=== PATIENT | male | born 1980 | race Caucasian/White ===

== ENCOUNTER 2020-11-10 06:33 | Emergency (ER) | payer OTHER, BC, SELFPAY ==
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
[2020-11-10 06:58] VITALS: BP 132/78; PULSE 88; RESP 16; TEMP 36.6; O2SAT 97; BMI 30.9
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
== END 2020-11-10 09:08 | disposition home or self-care (01) ==
PROVIDERS: Emergency Provider Emergency Medicine; PCP Internal Medicine
DX: S92.352A Displaced fracture of fifth metatarsal bone, left foot, initial encounter for closed fracture (principal); M79.672 Pain in left foot; V23.4XXA Motorcycle driver injured in collision with car, pick-up truck or van in traffic accident, initial encounter; Y93.9 Activity, unspecified; Y92.410 Unspecified street and highway as the place of occurrence of the external cause; Y99.9 Unspecified external cause status
CPT/HCPCS: 73590; 73600; 73620; 99283

== ENCOUNTER → 2020-11-20 10:05 | Outpatient (BNVA) | payer OTHER, BC, SELFPAY | PROVIDERS: PCP Internal Medicine; Visit Provider Orthopaedic Surgery ==

== ENCOUNTER 2020-12-24 08:20 | Outpatient (REF) | payer OTHER, BC, SELFPAY ==
--- NOTE | ~2020-12-24 | XR_ITS ---
EXAMINATION: XR FOOT, LEFT CLINICAL INFORMATION: Left foot pain COMPARISON: 11/10/2020 TECHNIQUE: AP, lateral, and oblique views of the left foot. FINDINGS: Incomplete healing of the slightly angulated fracture of the distal 5th metatarsal. There is some callus formation noted. Otherwise no significant change. XR/XR foot LT min 3V IMPRESSION: Incomplete healing of the slightly angulated fracture of the distal 5th metatarsal. There is some callus formation noted. Otherwise no significant change.
== END 2020-12-24 08:21 | disposition home or self-care (01) ==
LOC: HO.HOSX 08:20
PROVIDERS: Visit Provider Orthopaedic Surgery
DX: S92.352A Displaced fracture of fifth metatarsal bone, left foot, initial encounter for closed fracture (principal)
CPT/HCPCS: 73630

== ENCOUNTER 2021-01-14 08:10 | Outpatient (REF) | payer BC, SELFPAY ==
--- NOTE | ~2021-01-14 | XR_ITS ---
EXAMINATION: XR FOOT, LEFT CLINICAL INFORMATION: Left foot pain COMPARISON: December 24, 2020 TECHNIQUE: AP, lateral, and oblique views of the left foot. FINDINGS: There is a healing fracture without change in alignment of the distal left fifth metatarsal. There is some periosteal new bone formation. Fracture line is still seen but is less evident. No significant soft tissue swelling is appreciated. No destructive bony lesions. Joint spaces maintained. XR/XR foot LT min 3V IMPRESSION: Healing fracture of the left fifth distal metatarsal with what appears to be some degree of bony union.
== END 2021-01-14 08:11 | disposition home or self-care (01) ==
LOC: HO.HOSX 08:10
PROVIDERS: Visit Provider Orthopaedic Surgery
DX: S92.352D Displaced fracture of fifth metatarsal bone, left foot, subsequent encounter for fracture with routine healing (principal); X58.XXXD Exposure to other specified factors, subsequent encounter
CPT/HCPCS: 73630

== ENCOUNTER 2025-01-03 23:08 | Emergency (ER) | payer OTHER, SELFPAY ==
[2025-01-03 23:13] VITALS: BP 121/86; PULSE 89; RESP 20; TEMP 36.1; O2SAT 98; BMI 25.8
[2025-01-03 23:22] LABS: Glucose, Whole Blood 489 mg/dL (60-115)
[2025-01-03 23:48] LABS: Hematocrit 41.9 % (42.0-52.0); Hemoglobin 14.5 g/dl (14.0-18.0); Imm Gran Abs Auto 0.04 X10*3/uL (0.00-0.03); Imm Gran Pct Auto 0.4 % (0.0-0.4); Lymphocytes Absolute Auto 3.3 X10*3/uL (1.2-4.9); MANUAL DIFF FLAG NO; Mean Corpuscular HGB Conc 34.6 g/dl (31.0-36.0); Mean Corpuscular Hemoglobin 29.4 pg (27.0-33.0); Mean Corpuscular Volume 84.8 fL (80.0-98.0); NRBC Abs Auto 0.000 X10*3/uL (0.0-0.012); NRBC Pct Auto 0.0 /100WBC (0.0-0.2); Platelet Count 199 X10*3/uL (160-400); Red Blood Count 4.94 X10*6/uL (4.60-5.80); White Blood Count 10.3 X10*3/uL (4.8-10.8)
--- NOTE | 2025-01-03 23:52 | ED_ITS ---
HPI - General Adult General Chief complaint: General Medical Stated complaint: Feels tired, dry mouth Time Seen by Provider: 01/03/25 23:51 History of Present Illness HPI narrative: Patient is a 44-year-old male has been losing weight. Having dry mouth. Constant thirst. Drinking lots of fluid in the last month. Today use a neighbor's glucometer and it read as high. Patient decided to come to the ED. there is no chest pain there is no shortness of breath there is no diaphoresis Related Data Home Medications ?Medication ?Instructions ?Recorded ?Confirmed No Known Home Meds 11/20/20 11/20/20 Allergies Allergy/AdvReac Type Severity Reaction Status Date / Time No Known Allergies Allergy Verified 01/03/25 23:14 Review of Systems 2 Review of Systems: Positive increased thirst Positive increased urination Yes all other systems are reviewed and are negative [facility] [place] Past Medical History Attestation statement: The following information was validated with the patient. Medical History No known health problems Social History Social History Advance Directives: No Advance Directives Information Provided: Yes Current occupational status: employed Current occupation: [employer] Physical Exam ED Vital Signs: Vital Signs - 24 hr 01/03/25 23:13 Temperature 96.9 F Pulse Rate 89 Respiratory Rate 20 Blood Pressure 121/86 Pulse Oximetry 98 Oxygen Delivery Method Room Air BMI result Body Mass Index 25.8 Appearance: Alert. Oriented X3. No acute distress. Eyes: Pupils equal, round and reactive to light. ENT: Pharynx normal. Neck: Normal inspection. Neck supple. No lymph nodes noted. No crepitus CVS: Normal heart rate and rhythm. Pulses normal. Normal S1 and S2 Respiratory: No respiratory distress. Breath sounds normal. No Wheezing. No rales Abdomen: Soft and nontender. No rigidity. No distention. good BS x4 Skin: Skin warm and dry. Normal skin color. Normal skin turgor. Extremities: No lower extremity edema. Neurovascular intact to all extremities. No Lacerations. No Rash Neuro: Oriented X 3. No motor deficit. No sensory deficit. Moving all extermities. No slurred speech Medications Administered Discontinued Medications Generic Name Dose Route Start Last Admin Trade Name Freq PRN Reason Stop Dose Admin Sodium Chloride 1,000 mls @ 999 mls/hr 01/04/25 00:15 01/04/25 00:41 Ns IV 01/04/25 01:15 999 mls/hr .Q1H1M PAULETTE Administration Sodium Chloride 1,000 mls @ 999 mls/hr 01/04/25 00:15 01/04/25 00:41 Ns IV 01/04/25 01:15 999 mls/hr .Q1H1M PAULETTE Administration Insulin Human Regular 8 unit 01/04/25 00:08 01/04/25 00:41 Insulin Regular, Human 100 Unit/Ml 10 Ml Vial IVPUSH 01/04/25 00:09 8 unit ONCE ONE Administration Medical Decision Making Medical Decision Making [facility] Narrative: Patient given IV fluids x2 L. 8 units of insulin. Monitor in the emergency department. Electrolytes returned positive for hyperglycemia glucose is in the 500 range. There is a pseudo hyponatremia 129. There is no anion gap patient's bicarb was normal. After fluids insulin. Patient's glucose came down to 245. Will need close follow-up on an outpatient basis. Explained to patient the need to follow a strict low sugar diet. Refrain from drinking soda. Patient states understanding. Unfortunately the computer went on down time. We were only able to provide hand written discharge instructions. Patient to be followed on an outpatient basis. Will need diabetic management. Puff Ironer to manage patient's diet Differential Diagnosis Hyperglycemia Lab Data [facility] Lab Attestation statement: I reviewed the patient's lab results. 01/03/25 23:44 01/03/25 23:44 Labs: Lab Results 01/03/25 01/03/25 01/04/25 Range/Units 23:17 23:44 00:05 WBC 10.3 (4.8-10.8) X10*3/uL RBC 4.94 (4.60-5.80) X10*6/uL Hgb 14.5 (14.0-18.0) g/dl Hct 41.9 L (42.0-52.0) % MCV 84.8 (80.0-98.0) fL MCH 29.4 (27.0-33.0) pg MCHC 34.6 (31.0-36.0) g/dl RDW 12.8 (11.0-16.0) % Plt Count 199 (160-400) X10*3/uL MPV 11.7 (9.4-12.4) fL Immature Gran % (Auto) 0.4 (0.0-0.4) % Neut % (Auto) 59.3 (45-73) % Lymph % (Auto) 32.0 (20-40) % Stonewall % (Auto) 6.7 (2-11) % Eos % (Auto) 1.1 (0-4) % Baso % (Auto) 0.5 (0-2) % Lymph # (Auto) 3.3 (1.2-4.9) X10*3/uL [place] # (Auto) 0.7 (0.1-1.2) X10*3/uL Eos # (Auto) 0.1 (0.0-0.4) X10*3/uL Baso # (Auto) 0.1 (0.0-0.2) X10*3/uL Abs Immat Gran (auto) 0.04 H (0.00-0.03) X10*3/uL Absolute Neuts (auto) 6.1 (2.0-8.3) x10*3/uL Absolute Nucleated RBC 0.000 (0.0-0.012) X10*3/uL Nucleated RBC % (auto) 0.0 (0.0-0.2) /100WBC VBG pH (7.32-7.43) VBG pCO2 mmHg VBG pO2 mmHg VBG HCO3 (22-26) mmol/L VBG O2 Saturation % VBG Base Excess mmol/L Sodium 129 L (135-145) mmol/L Potassium 3.4 (3.3-5.1) mmol/L Chloride 95 L (96-108) mmol/L Carbon Dioxide 24 (22-29) mmol/L Anion Gap 13 (12-20) BUN 14 (9-16) mg/dL Creatinine 1.15 (0.5-1.4) mg/dL Estim Creat Clear Calc 70.5 Estimated GFR > 60 POC Glucose 489 H* (60-115) mg/dL Random Glucose 549 H* (60-115) mg/dL Calcium 8.4 (8.4-10.2) mg/dL Magnesium 2.5 (1.6-2.6) mg/dL Total Bilirubin 0.5 (0.0-1.0) mg/dL AST 21 (5-37) U/L ALT 22 (0-40) U/L Alkaline Phosphatase 105 (39-117) U/L Total Protein 6.2 L (6.5-8.0) g/dL Albumin 4.1 (3.5-5.0) g/dL Beta-Hydroxybutyrate 0.38 H (0.02-0.27) mmol/L 01/04/25 01/04/25 Range/Units 00:11 01:14 WBC (4.8-10.8) X10*3/uL RBC (4.60-5.80) X10*6/uL Hgb (14.0-18.0) g/dl Hct (42.0-52.0) % MCV (80.0-98.0) fL MCH (27.0-33.0) pg MCHC (31.0-36.0) g/dl RDW (11.0-16.0) % Plt Count (160-400) X10*3/uL MPV (9.4-12.4) fL Immature Gran % (Auto) (0.0-0.4) % Neut % (Auto) (45-73) % Lymph % (Auto) (20-40) % Stonewall % (Auto) (2-11) % Eos % (Auto) (0-4) % Baso % (Auto) (0-2) % Lymph # (Auto) (1.2-4.9) X10*3/uL [place]wall # (Auto) (0.1-1.2) X10*3/uL Eos # (Auto) (0.0-0.4) X10*3/uL Baso # (Auto) (0.0-0.2) X10*3/uL Abs Immat Gran (auto) (0.00-0.03) X10*3/uL Absolute Neuts (auto) (2.0-8.3) x10*3/uL Absolute Nucleated RBC (0.0-0.012) X10*3/uL Nucleated RBC % (auto) (0.0-0.2) /100WBC VBG pH 7.47 H (7.32-7.43) VBG pCO2 38 mmHg VBG pO2 65 mmHg VBG HCO3 28 H (22-26) mmol/L VBG O2 Saturation 95.0 % VBG Base Excess 4.9 mmol/L Sodium (135-145) mmol/L Potassium (3.3-5.1) mmol/L Chloride (96-108) mmol/L Carbon Dioxide (22-29) mmol/L Anion Gap (12-20) BUN (9-16) mg/dL Creatinine (0.5-1.4) mg/dL Estim Creat Clear Calc Estimated GFR POC Glucose 245 H (60-115) mg/dL Random Glucose (60-115) mg/dL Calcium (8.4-10.2) mg/dL Magnesium (1.6-2.6) mg/dL Total Bilirubin (0.0-1.0) mg/dL AST (5-37) U/L ALT (0-40) U/L Alkaline Phosphatase (39-117) U/L Total Protein (6.5-8.0) g/dL Albumin (3.5-5.0) g/dL Beta-Hydroxybutyrate (0.02-0.27) mmol/L Discharge Plan Discharge Clinical Impression: Diabetes mellitus Patient Disposition: Home, Self-Care Interventions: ED Discharge Assessment Last Done: 01/04/25 05:24 Discharge Date/Time: 01/04/25 02:25 Print Language: Khmer
--- NOTE | 2025-01-04 00:07 | ECG_ITS ---
Test Reason : HYPERGLYCEMIA Blood Pressure : */* mmHG Vent. Rate : 78 BPM Atrial Rate : 78 BPM P-R Int : 162 ms QRS Dur : 106 ms QT Int : 422 ms P-R-T Axes : 67 38 42 degrees QTcB Int : 481 ms Normal sinus rhythm Prolonged QT Abnormal ECG No previous ECGs available Referred By: Svitlana King Electronically Signed By: Baldev Fontana
[2025-01-04 00:12] LABS: Alanine Aminotransferase 22 U/L (0-40); Albumin Level 4.1 g/dL (3.5-5.0); Alkaline Phosphatase 105 U/L (39-117); Anion Gap 13 (12-20); Aspartate Amino Transferase 21 U/L (5-37); Blood Urea Nitrogen 14 mg/dL (9-16); Calcium 8.4 mg/dL (8.4-10.2); Carbon Dioxide 24 mmol/L (22-29); Chloride 95 mmol/L (96-108); Creatinine Clr Calc Pharmacy 70.5; Estimated Glomerular Filt Rate > 60; Potassium 3.4 mmol/L (3.3-5.1); Sodium 129 mmol/L (135-145); Total Protein 6.2 g/dL (6.5-8.0)
[2025-01-04 00:15] LABS: Venous Blood Gas Refer to POC result
[2025-01-04 00:16] LABS: VBG HCO3 28 mmol/L (22-26); VBG O2 % Saturation 95.0 %
[2025-01-04 00:26] LABS: Magnesium 2.5 mg/dL (1.6-2.6)
[2025-01-04 04:41] LABS: Glucose, Whole Blood 245 mg/dL (60-115)
[2025-01-04 05:24] VITALS: BP 121/86; PULSE 89; RESP 20; TEMP 36.1; O2SAT 98
== END 2025-01-04 02:25 | disposition home or self-care (01) ==
PROVIDERS: Emergency Provider Emergency Medicine Emergency Medical Services; PCP Internal Medicine
DX: E11.65 Type 2 diabetes mellitus with hyperglycemia (principal); R68.2 Dry mouth, unspecified; R53.83 Other fatigue; R94.31 Abnormal electrocardiogram [ECG] [EKG]; R11.0 Nausea; Z79.4 Long term (current) use of insulin; Z79.899 Other long term (current) drug therapy
CPT/HCPCS: 36415; 80053; 82010; 82803; 82947; 83735; 85025; 93005; 96361; 96374; 99283; 99284

== ENCOUNTER → 2025-01-04 00:07 | Outpatient (BNV) | payer OTHER, SELFPAY | PROVIDERS: Emergency Provider Emergency Medicine Emergency Medical Services; PCP Internal Medicine; Visit Provider Internal Medicine Cardiovascular Disease | DX: I45.81 Long QT syndrome (principal) | CPT/HCPCS: 93010 ==

== ENCOUNTER 2025-01-27 07:27 | Outpatient (REF) | payer OTHER, SELFPAY ==
[2025-01-27 07:59] LABS: MANUAL DIFF FLAG NO
[2025-01-27 08:35] LABS: Hematocrit 46.9 % (42.0-52.0); Hemoglobin 15.3 g/dl (14.0-18.0); Imm Gran Abs Auto 0.05 X10*3/uL (0.00-0.03); Imm Gran Pct Auto 0.6 % (0.0-0.4); Lymphocytes Absolute Auto 1.6 X10*3/uL (1.2-4.9); Mean Corpuscular HGB Conc 32.6 g/dl (31.0-36.0); Mean Corpuscular Hemoglobin 28.8 pg (27.0-33.0); Mean Corpuscular Volume 88.3 fL (80.0-98.0); NRBC Abs Auto 0.000 X10*3/uL (0.0-0.012); NRBC Pct Auto 0.0 /100WBC (0.0-0.2); Platelet Count 267 X10*3/uL (160-400); Red Blood Count 5.31 X10*6/uL (4.60-5.80); White Blood Count 8.0 X10*3/uL (4.8-10.8)
[2025-01-27 09:04] LABS: Alanine Aminotransferase 18 U/L (0-40); Albumin Level 4.5 g/dL (3.5-5.0); Alkaline Phosphatase 95 U/L (39-117); Anion Gap 11 (12-20); Aspartate Amino Transferase 22 U/L (5-37); Blood Urea Nitrogen 11 mg/dL (9-16); Calcium 9.4 mg/dL (8.4-10.2); Carbon Dioxide 30 mmol/L (22-29); Chloride 104 mmol/L (96-108); Cholesterol 195 mg/dL (<200); Estimated Glomerular Filt Rate > 60; HDL Cholesterol 36 mg/dL (>40); Potassium 4.9 mmol/L (3.3-5.1); Sodium 140 mmol/L (135-145); Total Protein 6.9 g/dL (6.5-8.0); Triglycerides 99 mg/dL (<150)
[2025-01-27 09:18] LABS: Microalbum/Creatinine Ratio Ur 4.8 ug/mg cr (<30)
[2025-01-27 09:25] LABS: PSA,Total (Free>4and<10) 0.35 ng/mL (0.00-4.00)
[2025-01-27 09:32] LABS: HBS Num1 0.60 mIU/mL (0-7.99); HBc Num1 0.06 S/CO (0.00-0.79); HBsAGNum1 0.36 S/CO (0.00-0.99); HIV Num 1 0.08 S/CO (0.00-0.99); Hepatitis B Surface Antigen Negative (Negative); ~HepC Num1 0.28 S/CO (0.00-0.79); ~Hepatitis B Surface Antibody NONREACTIVE (Nonreactive); ~Hepatitis C Antibody Nonreactive (Nonreactive)
[2025-01-27 09:42] LABS: Folate 11.1 ng/mL (> or = 4.0); Vitamin B12 395 pg/mL (200-900)
== END 2025-01-27 07:28 | disposition home or self-care (01) ==
LOC: HO.LAB 07:27
PROVIDERS: PCP Family Medicine; Visit Provider Family Medicine
DX: Z12.5 Encounter for screening for malignant neoplasm of prostate (principal); Z11.59 Encounter for screening for other viral diseases; Z11.4 Encounter for screening for human immunodeficiency virus [HIV]; Z11.1 Encounter for screening for respiratory tuberculosis; E11.65 Type 2 diabetes mellitus with hyperglycemia
CPT/HCPCS: 36415; 80053; 80061; 82043; 82570; 82607; 82746; 84153; 85025; 86704; 86706; 86803; 87340; 87389

== ENCOUNTER 2025-01-29 16:13 | Outpatient (REF) | payer OTHER, SELFPAY ==
--- OUTSIDE RECORDS SUMMARY | 2025-01-29 16:16 | XMS_ITS | Encounter Summary ---
Author Organization [employer] Address [address] [place] [address] Care Team Providers Care Tacking Stitch Remover Name Role Phone Airam Moreau MD Primary Care Provider [phone] Encounter Details Date Type Department Care Team (Late st Contact Info) Description 01/23/2025 Orders Only [facility] [address], [place] [phone] Provider, MD Nhi Social History Tobacco Use Types Packs/Day Years Used Date Smoking Tobacco: Never Assessed Depression Answer Date Recorded Patient Health Questionnaire-9 Score 4 01/26/2025 Patient Health Questionnaire-9 Score 4 01/26/2025 Last PHQ-9: Questionnaire Data Not on file 0 01/26/2025 Housing Stability Answer Date Recorded What is your housing situation today? I have chase sing 01/26/[address] you li ve. Do you have problems with any of the following? None of the above 01/26/2025 Food Insecurity Answer Date Recorded Within the past 12 months, y ou worried that your food would run out before you got money to buy more: Never True 01/26/2025 Within the past 12 months,th e food you bought just didn't last and you didn't have enough money to get more: Never True 06/2024 Transportation Answer Date Recorded In the past 12 months, has l ack of transportation kept you from medical appts, meetings, work or from getting things needed for daily living? No 01/26/2025 Utilities Answer Date Recorded In the past 12 months, has t he electric, gas, oil or water company threatened to shut off services in your home? No 01/26/2025 Depression Answer Date Recorded Patient Health Questionnaire-2 Score 0 01/26/2025 Internet Access Answer Date Recorded Internet Access Q1 Yes 01/26/2025 Internet Access Q2 Not on file 01/26/2025 Sex and Gender Information Value Date Recorded Sex Assigned at Male 01/26/2025 1:05 PM EDT Legal Sex Male 11:12 AM EDT Gender Identity Male 01/26/2025 1:05 PM EDT Sexual Orientation Straight 01/26/2025 1: 05 PM EDT documented as of this encounter Functional Status * Over the past 2 weeks, how often have you been bothered by any of the following problems? Question Answer Date of Assessment Author Patient Health Questionnaire -2 Score 0 01/26/2025 2:02 PM EDT Airam Moreau MD * Little interest or pleasure in doing things Answer Date of Assessment Author Not at all 01/26/2025 2:02 PM EDT Keysha Moreau MD * Feeling down, depressed, or hopeless Answer Date of Assessment Author Not at all 01/26/2025 2:02 PM YEIMIT Keysha Moreau MD * Trouble falling or staying asleep, or sleeping too much Answer Date of Assessment Author Several days 01/26/2025 2:02 PM EDT Keysha Moreau MD * Feeling tired or having little energy Answer Date of Assessment Author Several days 01/26/2025 2:02 PM YEIMIT Keysha Moreau MD * Poor appetite or overeating Answer Date of Assessment Author Several days 01/26/2025 2:02 PM YEIMIT Keysha Moreau MD * Feeling bad about yourself - or that you are a failure or have let yourself or your family down Answer Date of Assessment Author Not at all 01/26/2025 2:02 PM EDT Keysha Moreau MD * Trouble concentrating on things, such as reading the newspaper or watching television Answer Date of Assessment Author Not at all 01/26/2025 2:02 PM Keysha Richard MD * Moving or speaking so slowly that other people could have noticed? Or the opposite - being so fidgety or restless that you have been moving around a lot more than usual. Answer Date of Assessment Author Several days 01/26/2025 2:02 PM Keysha Richard MD * Thoughts that you would be better off or hurting yourself in some way Answer Date of Assessment Author Not at all 01/26/2025 2:02 PM EDT Keysha Moreau MD * Patient Health Questionnaire-9 Score Answer Date of Assessment Author 4 01/26/2025 2:02 PM EDT Keysha Moreau MD * How difficult have these problems made it for you to do your work, take care of things at home, or get along with other people? Answer Date of Assessment Author Not difficult at all 01/26/2025 2:02 PM EDT Airam Maguire MD documented as of this encounter Plan of Treatment Not on file documented as of this encounter Procedures Procedure Name Priority Date/Time Associated Diagnosis Comments DIABETES EYE EXAM Routine 01/22/2025 11:58 AM EDT documented in this encounter Results * Diabetes Eye Exam (01/22/2025 11:58 AM EDT) us Historical Provider HEALTH MAINTENANCE Final Result documented in this encounter Visit Diagnoses Not on filedocumented in this encounter Care Teams Tacking Stitch Remover Relationship Specialty Start Date End Date Airam Moreau MD [address] [place] [id number] PCP - General Family Medicine 01/26/25 documented as of this encounter
[2025-02-01 00:34] LABS: TS Negative Control Passed; TS Panel A 0; TS Panel B 0; TS Positive Control Passed; TSpotTB Negative (Negative)
== END 2025-01-29 16:14 | disposition home or self-care (01) ==
LOC: HO.LAB 16:13
PROVIDERS: PCP Family Medicine; Visit Provider Family Medicine
DX: Z11.1 Encounter for screening for respiratory tuberculosis (principal)
CPT/HCPCS: 36415; 86481